=== PATIENT | female | born 1955 | race Two or more races ===

== ENCOUNTER → 2016-11-27 | Outpatient (CLI) | payer OTHER ==
[~2016-11-27] MED LIST: ADOXA100 MG PO; NAPROXEN D/R500 MG PO; NORCO 325 MG-51 TAB PO; SPRINTEC 35 MCG1 TAB PO; ZANTAC 150150 MG PO
--- NOTE | 2016-11-30 17:56 | RADIOLOGY REPORT PS360 ---
DIG MAMM-SCREEN TIFFANIE W/CAD CAD Screening ORDERING PHYSICIAN : [facility] PATIENT AGE: 60 years GENDER: Female COMPARISON: Previous mammograms: November 2014, 2015, March INDICATION: Routine screening 60-year-old no hormones no new complaints noncontributory family history TECHNIQUE: Standard CC and MLO images were obtained. R2 CAD reviewed. FINDINGS: Lower -density breast bilaterally with no dominant mass nor suspicious calcifications either breast . Minimal basilar calcifications bilaterally No mass lesion. No architectural distortion. No significant change since prior studies. Minimal density superior left breast on MLO view is similar to studies dating back to 2009, 2016 view dissipates on the cc view and appears reasonably stable since prior studies. IMPRESSION: stable bilateral mammogram with no new areas of concern BI-RADS CATEGORY: 2_Benign . FOLLOWUP: 12M 12 MONTH FOLLOW-UP (A letter has been sent to the patient regarding results of the study.)
--- NOTE | 2016-11-30 17:56 | RADIOLOGY REPORT PS360 ---
DIG MAMM-SCREEN TIFFANIE W/CAD CAD Screening ORDERING PHYSICIAN : [facility] PATIENT AGE: 60 years GENDER: Female COMPARISON: Previous mammograms: November 2014, 2015, March INDICATION: Routine screening 60-year-old no hormones no new complaints noncontributory family history TECHNIQUE: Standard CC and MLO images were obtained. R2 CAD reviewed. FINDINGS: Lower -density breast bilaterally with no dominant mass nor suspicious calcifications either breast . Minimal basilar calcifications bilaterally No mass lesion. No architectural distortion. No significant change since prior studies. Minimal density superior left breast on MLO view is similar to studies dating back to 2009, 2016 view dissipates on the cc view and appears reasonably stable since prior studies. IMPRESSION: stable bilateral mammogram with no new areas of concern BI-RADS CATEGORY: 2_Benign . FOLLOWUP: 12M 12 MONTH FOLLOW-UP (A letter has been sent to the patient regarding results of the study.)
== END ==
LOC: RAD 09:00
DX: Z12.31 Encounter for screening mammogram for malignant neoplasm of breast (principal)
CPT/HCPCS: G0202